=== PATIENT | male | born 1960 | race Caucasian/White ===

== ENCOUNTER → 2016-10-19 | Outpatient (CLI) | payer OTHER ==
[2016-10-19 16:53] LABS: Basophils # (A) 0.1 k/uL (0-0.2); Basophils % (A) 1 %; CH 34.2; CHCM 32.7; Eosinophils # (A) 0.5 k/uL (0-0.7); Eosinophils % (A) 4 %; HCT 53.3 % (39.0-53.0); HDW 2.41; HGB 17.2 gm/dL (13.0-17.5); Luc # (Auto) 0.34; Luc % (Auto) 2; Lymphocytes # (A) 3.9 k/uL (1.0-4.8); Lymphocytes % (A) 28 %; MCHC 32.4 g/dL (31.0-37.0); MCV 105.1 fL (80.0-100.0); Macrocytosis Moderate; Mean Platelet Volume 8.7; Monocytes % (A) 7 %; Neutrophils # (A) 8.1 k/uL (1.3-7.7); Neutrophils % (A) 58 %; RBC 5.07 m/uL (4.30-5.90); RDW 14.6 % (11.5-15.5); WBC 13.8 k/uL (3.8-10.6); WBC (Perox) 14.17
[2016-10-19 17:05] LABS: ALT 31 U/L (21-72); AST 26 U/L (17-59); Alkaline Phosphatase 87 U/L (38-126); Anion Gap 7 mmol/L; Blood Urea Nitrogen 17 mg/dL (9-20); Calcium 9.8 mg/dL (8.4-10.2); Carbon Dioxide 29 mmol/L (22-30); Chloride 104 mmol/L (98-107); Cholesterol 202 mg/dL (<200); Glucose 82 mg/dL (74-99); HDL Cholesterol 48 mg/dL (40-60); Non-African American GFR(MDRD) >60 (>60 ml/min/1.73 sqM); Potassium 4.2 mmol/L (3.5-5.1); Sodium 140 mmol/L (137-145); Total Bilirubin 0.6 mg/dL (0.2-1.3); Total Protein 7.2 g/dL (6.3-8.2); Triglycerides 100 mg/dL (<150)
[2016-10-19 17:21] LABS: Prolactin 16.2 ng/mL (3.7-17.9)
[2016-10-19 17:36] LABS: Prostate Specific Antigen 2.42 ng/mL (0.00-4.00)
== END | disposition home or self-care (01) ==
LOC: LABWHC1 16:30
PROVIDERS: ATTEND Family Medicine
DX: Z00.00 Encounter for general adult medical examination without abnormal findings (principal); Z12.5 Encounter for screening for malignant neoplasm of prostate; E29.1 Testicular hypofunction; D35.2 Benign neoplasm of pituitary gland
CPT/HCPCS: 36415; 80053; 80061; 82040; 84146; 84153; 84270; 84403; 85025

== ENCOUNTER → 2017-08-14 | Outpatient (CLI) | payer BC ==
--- NOTE | 2017-08-15 09:42 | MR ---
EXAMINATION TYPE: MR brain wo/w con DATE OF EXAM: 08/14/2017 COMPARISON: 06/17/[address] 09/12/2014 HISTORY: 57-year-old male benign neoplasm of cerebral meninges TECHNIQUE: Multiplanar, multisequence images of the brain and brainstem were acquired before and aft er administration of 7.5 mL IV Gadavist. Diffusion weighted imaging is performed. FINDINGS: As seen on CT of 09/12/2014, there is a mass along the lateral margin of the right cavernous sinus artemio ng the medial aspect of the right middle cranial fossa. This shows intermediate T2-weighted signal, s mooth contour, dural tail suggesting extra-axial location, abdomen and homogeneous postcontrast enhan cement measuring 2.7 cm AP by 1.8 cm and 2.1 cm craniocaudal. On prior 2014 CT, this is remeasured at 2.0 x 1.6 x 1.7 cm. On prior 2010 MRI, this was much smaller and is seen in retrospect and is measured at 1.5 x 1.0 x 1.2 cm. On the current exam, this causes mild regional mass effect onto the medial aspect of the right tempor al lobe. No midline shift. No extra-axial fluid collection or effacement of basal subarachnoid cisterns. Ventricles are age-appr opriate. Major intracranial flow voids are intact. T2/FLAIR weighted sequences show minimal scattered burden of right white matter change in the subcort ical and periventricular regions, approximately 5 on the right and 2 on the left. Midline structures demonstrate normal morphology. The craniocervical junction is normal. Post contrast images demonstrate no other evidence of pathologic enhancement. Dural venous sinuses a re patent. There is mild diffuse mucosal thickening throughout the paranasal sinuses. Globes are intact. IMPRESSION: 1. No acute intracranial abnormality seen. 2. Gradually enlarging extra-axial mass along the lateral margin of the right cavernous sinus within the medial aspect of the right middle cranial fossa. This currently measures 2.7 x 1.8 x 2.1 cm and h as mild regional mass effect onto the right temporal lobe. (On 09/12/2014, this measured 2.0 x 1.6 x 1 .7 cm) (on 06/17/2011, this measured 1.5 x 1.0 x 1.2 cm). 2. Given the T2 signal and enhancement characteristics as well as the extra-axial location, findings are most suggestive of a gradually enlarging meningioma. 3. Mild chronic pansinus disease.
== END | disposition home or self-care (01) ==
LOC: RADMRIMAIN 12:28
PROVIDERS: ATTEND Family Medicine
DX: G93.89 Other specified disorders of brain (principal); R93.0 Abnormal findings on diagnostic imaging of skull and head, not elsewhere classified; D32.0 Benign neoplasm of cerebral meninges
CPT/HCPCS: 70553; A9581

== ENCOUNTER 2018-06-28 08:56 | Emergency (ER) | payer BC, MEDICAID ==
[2018-06-28] MEDS ORDERED: SODIUM CHLORIDE 0.9% 1,000 ML IV STA (09:28)
[2018-06-28] MEDS ORDERED: METOCLOPRAMIDE 5 MG/ML 2 ML VIAL IVP STA (09:29)
[2018-06-28] MEDS ORDERED: DEXAMETHASONE SOD PHOSPHATE 10 MG/ML 1 ML VIAL IV STA (09:30)
--- NOTE | 2018-06-28 09:33 | ED ---
General Adult HPI - General Chief complaint: Neuro Symptoms/Deficit Stated complaint: head pain Source: patient Mode of arrival: ambulatory - History of Present Illness Initial comments: Dictation was produced using [employer] dictation software. please excuse any grammatical, word or spelling errors. Chief Complaint: 50-year-old male with past medical history of brain tumor status post resection presents with headache. History of Present Illness: The 50-year-old male with past medical history of hypertension, benign brain tumor presents with headache. Patient states that he had 2 resection of the brain proximally 1 year done at [place]. Patient states that over the past week he has been having increasing pain over the right side of his head. He states that he can feel the hardware in his brain. He states it hurts whenever he presses around that area. Patient has also been complaining of right-sided eye vision loss. Denies any constitutional symptoms. Patient states his pain is worse whenever he touches his surgical site. The ROS documented in this emergency department record has been reviewed and confirmed by me. Those systems with pertinent positive or negative responses have been documented in the HPI. All other systems are other negative and/or noncontributory. - Related Data Home Medications Medication Instructions Recorded Confirmed Ibuprofen [Motrin] 800 mg PO Q6HR PRN 09/12/14 06/28/18 Budesonide/Formoterol Fumarate 2 puff INHALATION RT-DAILY 06/28/18 06/28/18 [Symbicort 160-4.5 Mcg Inhaler] Calcium Carb/Magnesium Hydrox 1 tab PO Q3HR 06/28/18 06/28/18 [Rolaids Chewable Tablet] Previous Rx's Medication Instructions Recorded Hydrocodone/Acetaminophen [[place] 1 tab PO Q6HR PRN 3 Days #12 tab 06/28/18 5-325] Allergies Allergy/AdvReac Type Severity Reaction Status Date / Time Penicillins Allergy Rash/Hives Verified 06/28/18 10:13 hydromorphone HCl AdvReac Hallucinati Verified 06/28/18 10:13 [From Dilaudid] ons Review of Systems ROS Statement: Those systems with pertinent positive or pertinent negative responses have been documented in the HPI. ROS Other: All systems not noted in ROS Statement are negative. Past Medical History Past Medical History: Hypertension Additional Past Medical History / Comment(s): Benign brain tumor History of Any Multi-Drug Resistant Organisms: MRSA Date of last positivie culture/infection: 2012 MDRO Source:: foot Past Surgical History: No Surgical Hx Reported Additional Past Surgical History / Comment(s): Tumor removed from brain 2017 Smoking Status: Current every day smoker Past Alcohol Use History: None Reported Past Drug Use History: None Reported General Exam - General Exam Comments Initial Comments: PHYSICAL EXAM: General Impression: Alert and oriented x3, not in acute distress HEENT: Normocephalic atraumatic, extra-ocular movements intact, pupils equal and reactive to light bilaterally, mucous membranes moist. Cardiovascular: Heart regular rate and rhythm, S1&S2 audible, no murmurs, rubs or gallops Chest: Lungs clear to auscultation bilaterally, no rhonchi, no wheeze, no rales Abdomen: Bowel sounds present, abdomen soft, non-tender, non-distended, no organomegaly Musculoskeletal: Pulses present and equal in all extremities, no peripheral edema Motor: Power 5/5 bilaterally, no focal deficits noted Neurological: CN II-XII grossly intact, no focal motor or sensory deficits noted Skin: Intact with no visualized rashes Psych: Normal affect and mood Course Vital Signs 06/28/18 06/28/18 06/28/18 09:03 10:00 10:30 Temperature 98.0 F Pulse Rate 75 51 L 48 L Respiratory 18 20 20 Rate Blood Pressure 154/89 148/95 136/90 O2 Sat by Pulse 99 97 98 Oximetry 06/28/18 11:00 Temperature Pulse Rate 50 L Respiratory 17 Rate Blood Pressure 135/91 O2 Sat by Pulse 98 Oximetry Medical Decision Making - Medical Decision Making ED course: 58-year-old male presents with headache. He has history of tumor resection on the right side of his brain. Vital signs upon arrival are within acceptable limits. Basic labs were obtained showing no acute processes. Computed tomography scan does not show an acute processes. Patient given headache cocktail with improvement of symptoms. An attempt was made to contact patient's neurosurgeon. We were unable to establish contact with neurosurgeon. He was in the operating room allegedly. We contacted his clinic office. He has clinic on Monday. Patient is told to call the office on Monday to schedule an appointment. He is given some pain medications to go home with. Patient told to schedule an appointment for Monday. He is understandable and agreeable to this plan. He does have any neuro deficits that would warrant immediate transfer. - Lab Data Result diagrams: 06/28/18 09:33 06/28/18 09:33 Lab Results 06/28/18 06/28/18 06/28/18 Range/Units 09:33 09:33 09:33 WBC 10.8 H (3.8-10.6) k/uL RBC 4.91 (4.30-5.90) m/uL Hgb 16.1 (13.0-17.5) gm/dL Hct 50.6 (39.0-53.0) % MCV 103.1 H (80.0-100.0) fL MCH 32.7 (25.0-35.0) pg MCHC 31.7 (31.0-37.0) g/dL RDW 14.4 (11.5-15.5) % Plt Count 188 (150-450) k/uL Neutrophils % 69 % Lymphocytes % 20 % Monocytes % 7 % Eosinophils % 3 % Basophils % 1 % Neutrophils # 7.4 (1.3-7.7) k/uL Lymphocytes # 2.2 (1.0-4.8) k/uL Monocytes # 0.8 (0-1.0) k/uL Eosinophils # 0.3 (0-0.7) k/uL Basophils # 0.1 (0-0.2) k/uL Macrocytosis Slight PT 10.5 (9.0-12.0) sec INR 1.1 (<1.2) Sodium 141 (137-145) mmol/L Potassium 4.8 (3.5-5.1) mmol/L Chloride 112 H (98-107) mmol/L Carbon Dioxide 23 (22-30) mmol/L Anion Gap 6 mmol/L BUN 18 (9-20) mg/dL Creatinine 0.85 (0.66-1.25) mg/dL Est GFR (CKD-EPI)AfAm >90 (>60 ml/min/1.73 sqM) Est GFR (CKD-EPI)NonAf >90 (>60 ml/min/1.73 sqM) Glucose 88 (74-99) mg/dL Calcium 9.1 (8.4-10.2) mg/dL Disposition Clinical Impression: Headache Disposition: HOME SELF-CARE Condition: Good Instructions: Acute Headache (ED) Prescriptions: Hydrocodone/Acetaminophen [[place] 5-325] 1 tab PO Q6HR PRN 3 Days #12 tab PRN Reason: Pain Is patient prescribed a controlled substance at d/c from ED?: Yes Referrals: None,Stated [Primary Care Provider] - 1-2 days Brian Burton MD [STAFF PHYSICIAN] - 1-2 days Time of Disposition: 11:50
[2018-06-28 09:50] LABS: INR 1.1 (<1.2); Prothrombin Time 10.5 sec (9.0-12.0)
[2018-06-28 09:52] LABS: Basophils # (A) 0.1 k/uL (0-0.2); Basophils % (A) 1 %; Eosinophils # (A) 0.3 k/uL (0-0.7); Eosinophils % (A) 3 %; HCT 50.6 % (39.0-53.0); HGB 16.1 gm/dL (13.0-17.5); Lymphocytes # (A) 2.2 k/uL (1.0-4.8); Lymphocytes % (A) 20 %; MCH 32.7 pg (25.0-35.0); MCHC 31.7 g/dL (31.0-37.0); MCV 103.1 fL (80.0-100.0); Macrocytosis Slight; Mean Platelet Volume 7.4; Monocytes # (A) 0.8 k/uL (0-1.0); Monocytes % (A) 7 %; Neutrophils # (A) 7.4 k/uL (1.3-7.7); Neutrophils % (A) 69 %; Platelet Count 188 k/uL (150-450); RBC 4.91 m/uL (4.30-5.90); RDW 14.4 % (11.5-15.5); WBC 10.8 k/uL (3.8-10.6)
[2018-06-28 09:55] LABS: Anion Gap 6 mmol/L; Blood Urea Nitrogen 18 mg/dL (9-20); Calcium 9.1 mg/dL (8.4-10.2); Carbon Dioxide 23 mmol/L (22-30); Chloride 112 mmol/L (98-107); Glucose 88 mg/dL (74-99); Potassium 4.8 mmol/L (3.5-5.1); Sodium 141 mmol/L (137-145)
--- NOTE | 2018-06-28 10:02 | CT ---
EXAMINATION TYPE: CT brain wo con DATE OF EXAM: 06/28/2018 COMPARISON: 09/12/2014 CT brain HISTORY: Head pain, Brain surgery [address] DLP: 1062.4 mGycm. Automated Exposure Control for Dose Reduction was Utilized. TECHNIQUE: CT scan of the head is performed without contrast. FINDINGS: Craniectomy and craniotomy changes are seen within the right temporal, frontal, and parieta l bones. The previously seen right middle cranial fossa extra-axial mass abutting the cavernous sinus is now surgically absent. Encephalomalacia seen of the inferior anterior and medial right temporal l obe likely postsurgical. There is no acute intracranial hemorrhage, mass effect, or midline shift identified. The ventricles and sulci are within normal limits in size. Mild mucosal thickening is present within the maxillary s inuses. Surgical augmentation of the ostiomeatal complexes is noted. Remaining paranasal sinuses and mastoid air cells are well aerated. Globes are unremarkable. IMPRESSION: Postsurgical change of excision of a prior right extra-axial middle cranial fossa mass wi th subsequent encephalomalacia of the right temporal lobe. No acute intracranial process.
[2018-06-28 12:01] VITALS: BP 130/80; PULSE 53; RESP 16; TEMP 98.2
== END 2018-06-28 11:55 | disposition home or self-care (01) ==
LOC: EC 08:56
DX: R51 Headache (principal); Z86.011 Personal history of benign neoplasm of the brain; F17.200 Nicotine dependence, unspecified, uncomplicated; Z86.14 Personal history of Methicillin resistant Staphylococcus aureus infection; Z79.51 Long term (current) use of inhaled steroids; Z79.899 Other long term (current) drug therapy; Z88.0 Allergy status to penicillin; Z88.5 Allergy status to narcotic agent
CPT/HCPCS: 36415; 70450; 80048; 85025; 85610; 93005; 96361; 96374; 96375; 99284

== ENCOUNTER 2018-06-30 12:15 | Emergency (ER) | payer MEDICAID, OTHER ==
[2018-06-30 12:48] VITALS: RESP 18
[2018-06-30] MEDS ORDERED: HYDROcodone/APAP 5-325MG 1 EACH TAB PO STA (13:12)
[2018-06-30] MEDS ORDERED: PROPARACAINE 0.5% OPHTH DROPS 15 ML BTL RIGHT EYE STA (13:27)
[2018-06-30] MEDS: PROPARACAINE 0.5% OPHTH DROPS 15 ML BTL RIGHT EYE SCH (13:32)
--- NOTE | 2018-06-30 13:59 | ED ---
General Adult HPI - General Chief complaint: Eye Problems Stated complaint: Shingles Source: patient, RN notes reviewed, old records reviewed Mode of arrival: ambulatory Limitations: no limitations - History of Present Illness Initial comments: 50-year-old male patient with past history of benign neoplasm of the brain, presents to ED with one day history of rash above right eye, pain right eye. Patient was seen at urgent care prior to presentation, diagnosed with shingles. Patient states that she was initiated at urgent care, patient was instructed that he has not hear from them by 12 noon and they have not gotten in contact with the distillery worker general, and then recommended he present to ED to get in contact with Optho. Patient has never had shingles before. Patient does report that he had for several as a child. Patient reports pain right eye, watering right eye, discharge, states the visual acuity is at baseline when he blinks, however his eyes watery. Patient denies loss of vision, diplopia. Patient has no other complaints. Patient ambulatory. Patient has no facial droop, focal deficit. Patient denies chest pain, shortness breath, abdominal pain, nausea vomiting diarrhea. Systemic: Pt denies fatigue, myalgia. Pt denies weakness, night sweats, weight loss. Neuro: Pt denies headache, visual disturbances, syncope or pre-syncope. HEENT: Pt denies otalgia, rhinorrhea, pharyngitis or notable lymphadenopathy. Cardiopulmonary: Pt denies chest pain, SOB, heart palpitations, dyspnea on exertion. Abdominal/GI: Pt denies abdominal pain, n/v/d. : Pt denies dysuria, burning w/ urination, frequency/urgency. Denies new onset urinary or bowel incontinence. MSK: Pt denies myalgia, loss of strength or function in extremities. Neuro: Pt denies new onset weakness, facial droop, difficulty speaking, paresthesias. - Related Data Home Medications Medication Instructions Recorded Confirmed Ibuprofen [Motrin] 800 mg PO Q6HR PRN 09/12/14 06/28/18 Budesonide/Formoterol Fumarate 2 puff INHALATION RT-DAILY 06/28/18 06/28/18 [Symbicort 160-4.5 Mcg Inhaler] Calcium Carb/Magnesium Hydrox 1 tab PO Q3HR 06/28/18 06/28/18 [Rolaids Chewable Tablet] Previous Rx's Medication Instructions Recorded Hydrocodone/Acetaminophen [[place] 1 tab PO Q6HR PRN 3 Days #12 tab 06/28/18 5-325] Artificial Tears-Hypromellose 1 drops RIGHT EYE Q4HR 5 Days #1 06/30/18 [Artificial Tear Drops] bottle Allergies Allergy/AdvReac Type Severity Reaction Status Date / Time Penicillins Allergy Rash/Hives Verified 06/30/18 12:48 hydromorphone HCl AdvReac Hallucinati Verified 06/30/18 12:48 [From Dilaudid] ons Review of Systems ROS Statement: Those systems with pertinent positive or pertinent negative responses have been documented in the HPI. ROS Other: All systems not noted in ROS Statement are negative. Past Medical History Past Medical History: Hypertension Additional Past Medical History / Comment(s): Benign brain tumor History of Any Multi-Drug Resistant Organisms: MRSA Date of last positivie culture/infection: 2012 MDRO Source:: foot Past Surgical History: No Surgical Hx Reported Additional Past Surgical History / Comment(s): Tumor removed from brain 2017 Past Psychological History: Anxiety, Depression Smoking Status: Current every day smoker Past Alcohol Use History: None Reported Past Drug Use History: None Reported General Exam - General Exam Comments Initial Comments: Constitutional: NAD, AOX3, Pt has pleasant affect. HEENT: NC/AT, trachea midline, neck supple, no lymphadenopathy. Posterior pharynx non erythematous, without exudates. External ears appear normal, without discharge. Mucous membranes moist. Eyes PERRLA, EOM intact. Flourescence stain and slit lamp examination performed, no areas of uptake, no corneal abrasion, no dendritic lesions noted. Moderate injection noted to medial canthus. There is no scleral icterus. No pallor noted. Cardiopulmonary: RRR, no murmurs, rubs or gallops, no JVD noted. Lungs CTAB in anterior and posterior mendoza. No peripheral edema. Abdominal exam: Abdomen soft and non-distended. Abdomen non-tender to palpation in all 4 quadrants. Bowel sounds active in LLQ. No hepatosplenomegaly. Neuro: CN II-XII intact. No focal deficit, no lid droop, no facial droop. Patient is ambulatory without difficulty. Vision is full active range of motion in upper and lower extremity, full sensation. Derm: Mild, erythematous, macular papular rash noted on right V1 dermatome. No lesions directly involve the eye. Tender to light stroke. Limitations: no limitations Course Vital Signs 06/30/18 12:45 Temperature 98.2 F Pulse Rate 57 L Respiratory 18 Rate Blood Pressure 139/91 O2 Sat by Pulse 98 Oximetry Medical Decision Making - Medical Decision Making 58-year-old male patient diagnosed with first herpes zoster reactivation at urgent care by Dr. Otto earlier today. Patient has a maculopapular rash affecting V1. Patient has injection to medial canthus of right eye. Eyes PERRLA , EOM intact. Flourescence stain and slit lamp examination performed, no areas of uptake, no corneal abrasion, no dendritic lesions noted. Moderate injection noted to medial canthus. There is no scleral icterus. Patient very started on Valtrex, gabapentin by urgent care. Pt on valtrex 1g TID x 7 days. Pt visual acuity is 20/40 in affected eye, states that eyesight is nearly at baseline, just watery. Pt acuity is 20/30 in nonaffected eye, and 20/30 bilaterally. Contact made with Dr. Wagner in opthamology. Per guidance of Dr. Wagner pt to continue valtrex tx, be started on artificial tears, and will be seen in office tomorrow. Patient to return to ED if any new signs or symptoms develop including decreased visual acuity, worsening pain, lesions affecting, nausea vomiting diarrhea, changes in vision, any other new symptoms. Case discussed with Dr. Leroy. Disposition Clinical Impression: Herpes zoster Disposition: HOME SELF-CARE Prescriptions: Artificial Tears-Hypromellose [Artificial Tear Drops] 1 drops RIGHT EYE Q4HR 5 Days #1 bottle Is patient prescribed a controlled substance at d/c from ED?: No Referrals: Luke Jones MD [Primary Care Provider] - 1-2 days Jhoan Wagner MD [STAFF PHYSICIAN] - 1-2 days Time of Disposition: 14:46
[2018-06-30 15:23] VITALS: BP 154/85; PULSE 56; TEMP 97.7
== END 2018-06-30 15:17 | disposition home or self-care (01) ==
LOC: EC 12:15
DX: B02.9 Zoster without complications (principal); F17.200 Nicotine dependence, unspecified, uncomplicated; Z86.011 Personal history of benign neoplasm of the brain; Z86.14 Personal history of Methicillin resistant Staphylococcus aureus infection; Z79.51 Long term (current) use of inhaled steroids; Z88.0 Allergy status to penicillin; Z88.5 Allergy status to narcotic agent; Z53.20 Procedure and treatment not carried out because of patient's decision for unspecified reasons
CPT/HCPCS: 99283

== ENCOUNTER 2018-11-27 20:12 | Emergency (ER) | payer OTHER ==
[2018-11-27 20:17] VITALS: BP 150/86; PULSE 85; RESP 18; TEMP 97.8
[2018-11-27] MEDS ORDERED: LIDOCAINE 1% INJ 10MG/ML (20 ML MDV) SQ ONE (20:47)
--- NOTE | 2018-11-27 21:44 | ED ---
General Adult HPI - General Chief complaint: Skin/Abscess/Foreign Body Stated complaint: Lump in back Time Seen by Provider: 11/27/18 20:26 Source: patient, RN notes reviewed Mode of arrival: ambulatory - History of Present Illness Initial comments: 50-year-old male presents to the emergency department for a chief complaint of "lump on back." Patient states he noticed this tonight. States it is very tender. Patient states he may have noticed some streaking redness from the area but is unsure. Patient denies fevers or chills. Patient states his significant other wanted him to have it evaluated.Patient has no other complaints at this time including shortness of breath, chest pain, abdominal pain, nausea or vomiting, headache, or visual changes. - Related Data Home Medications Medication Instructions Recorded Confirmed Ibuprofen [Motrin] 800 mg PO Q6HR PRN 09/12/14 06/28/18 Budesonide/Formoterol Fumarate 2 puff INHALATION RT-DAILY 06/28/18 06/28/18 [Symbicort 160-4.5 Mcg Inhaler] Calcium Carb/Magnesium Hydrox 1 tab PO Q3HR 06/28/18 06/28/18 [Rolaids Chewable Tablet] Previous Rx's Medication Instructions Recorded Hydrocodone/Acetaminophen [[place] 1 tab PO Q6HR PRN 3 Days #12 tab 06/28/18 5-325] Artificial Tears-Hypromellose 1 drops RIGHT EYE Q4HR 5 Days #1 06/30/18 [Artificial Tear Drops] bottle Allergies Allergy/AdvReac Type Severity Reaction Status Date / Time Penicillins Allergy Rash/Hives Verified 11/27/18 20:17 hydromorphone HCl AdvReac Hallucinati Verified 11/27/18 20:17 [From Dilaudid] ons Review of Systems ROS Statement: Those systems with pertinent positive or pertinent negative responses have been documented in the HPI. ROS Other: All systems not noted in ROS Statement are negative. Past Medical History Past Medical History: Hypertension Additional Past Medical History / Comment(s): Benign brain tumor History of Any Multi-Drug Resistant Organisms: MRSA Date of last positivie culture/infection: 2012 MDRO Source:: foot Past Surgical History: No Surgical Hx Reported Additional Past Surgical History / Comment(s): Tumor removed from brain 2017 Past Psychological History: Anxiety, Depression Smoking Status: Current every day smoker Past Alcohol Use History: None Reported Past Drug Use History: None Reported General Exam General appearance: alert, in no apparent distress Head exam: Present: atraumatic, normocephalic, normal inspection Eye exam: Present: normal appearance, PERRL, EOMI. Absent: scleral icterus, conjunctival injection, periorbital swelling ENT exam: Present: normal exam, mucous membranes moist Neck exam: Present: normal inspection, full ROM. Absent: tenderness, meningismus, lymphadenopathy Respiratory exam: Present: normal lung sounds bilaterally. Absent: respiratory distress, wheezes, rales, rhonchi, stridor Cardiovascular Exam: Present: regular rate, normal rhythm, normal heart sounds. Absent: systolic murmur, diastolic murmur, rubs, gallop, clicks GI/Abdominal exam: Present: soft, normal bowel sounds. Absent: distended, tenderness, guarding, rebound, rigid Neurological exam: Present: alert, oriented X3, CN II-XII intact Psychiatric exam: Present: normal affect, normal mood Skin exam: Present: other (There is of 4 cm x 5 cm indurated area of the right mid dorsum below the scapula. This is tender however it is nonerythematous. Does not appear as an infection at this time.Patient has no other complaints at this time including shortness of breath, chest pain, abdominal pain, nausea or vomiting, headache, or visual changes.) Course Vital Signs 11/27/18 20:15 Temperature 97.8 F Pulse Rate 85 Respiratory 18 Rate Blood Pressure 150/86 O2 Sat by Pulse 98 Oximetry Medical Decision Making - Medical Decision Making 58-year-old male presents to the emergency department for a chief complaint of painful bump on his back. Patient states he noticed this today as tender but is not sure if it has been there for longer. Denies fevers or chills. Does think he noticed some streaking redness from the area however this is not evident at this time. On exam patient has a 4 cm x 5 cm nodule noted of the back. It is somewhat fluctuant however non-erythematous. Does not really appear like an abscess at this time. However given his history of possible streaking redness a did incise this with an 18-gauge needle. Serous fluid was expelled. This is likely a cyst however it does not appear infected. I believe patient should follow up outpatient with either dermatology or surgery for this. He should return here if he has any worsening symptoms. Disposition Clinical Impression: Cyst Disposition: HOME SELF-CARE Condition: Good Instructions (If sedation given, give patient instructions): Abscess (ED) Additional Instructions: Please follow up with general surgeon or dermatology in 1-2 days. However if you are having any worsening symptoms then return here to the emergency department. Is patient prescribed a controlled substance at d/c from ED?: No Referrals: Luke Jones MD [Primary Care Provider] - 1-2 days Marcia Hickman MD [STAFF PHYSICIAN] - 1-2 days Keith Walton MD [STAFF PHYSICIAN] - 1-2 days Time of Disposition: 21:38
== END 2018-11-27 22:08 | disposition home or self-care (01) ==
LOC: EC 20:12
DX: L72.9 Follicular cyst of the skin and subcutaneous tissue, unspecified (principal); F17.200 Nicotine dependence, unspecified, uncomplicated; Z86.14 Personal history of Methicillin resistant Staphylococcus aureus infection; Z79.51 Long term (current) use of inhaled steroids; Z88.0 Allergy status to penicillin; Z88.5 Allergy status to narcotic agent
CPT/HCPCS: 99283; 10060; J2001

== ENCOUNTER 2019-04-04 11:27 | Day surgery (SDC) | payer OTHER ==
[2019-03-29 14:31] VITALS: BMI 25.0
[~2019-04-04 11:27] MED LIST: LACTATED RINGERS 1,000 ML IV SCH; LIDOCAINE 1% 20 ML VIAL (10MG/ML) FOR IV START INTRADERMA PRN
[2019-04-04 11:58] VITALS: TEMP 98.4
[2019-04-04] MEDS ORDERED: LIDOCAINE 1% INJ 10MG/ML (20 ML MDV) ONE (12:32)
[2019-04-04] MEDS ORDERED: PROPOFOL 10 MG/ML 20 ML VIAL IV ONE (12:32)
--- NOTE | 2019-04-04 13:07 | P.PCN ---
Date of Procedure: 04/04/19 Description of Procedure: BRIEF HISTORY: Patient is a 58-year-old pleasant male scheduled for an elective colonoscopy as a part of screening for malignant neoplasm of colon. Denies any prior history of colonoscopy. Denies any change in bowel habits, blood per rectum, abdominal pain, constipation or diarrhea. He does report a history of colon cancer diagnosed in his mother in her 50s. PROCEDURE PERFORMED: Colonoscopy. PREOPERATIVE DIAGNOSIS: Screening for malignant neoplasm of the colon, no prior colonoscopies. ESTIMATED BLOOD LOSS: Minimal. IV sedation per Anesthesia. PROCEDURE: After informed consent was obtained, the patient, was brought into the endoscopy unit. IV sedation was administered by Anesthesia under continuous monitoring. Digital rectal examination was normal. Initially the Olympus CF-190 flexible video colonoscope was then inserted in the rectum, gradually advanced into the cecum without any difficulty. Careful examination was performed as the scope was gradually being withdrawn. Ileocecal valve and the appendiceal orifice were visualized and appeared normal. Prep was good, with some semisolid liquid stool adherent to the tan of the right colon which was lavaged. Mucosa of the cecum, ascending colon, transverse colon, descending colon, sigmoid colon, and rectum appeared normal. A few small mouth diverticula in the sigmoid colon noted. Retroflexion was performed in the rectum and no lesions were seen, mild internal hemorrhoids. The patient tolerated the procedure well. IMPRESSION: Normal-appearing colon from rectum to cecum. Mild sigmoid diverticulosis. RECOMMENDATIONS: Findings of this examination were discussed with the patient and his daughter. Okay to resume high-fiber diet. Okay to resume medications. Recommend repeat colonoscopy in 5 years given family history of colon cancer, or sooner if signs or symptoms which warrant further evaluation develop.
[2019-04-04 13:24] VITALS: BP 151/78; PULSE 57; RESP 18
== END 2019-04-04 13:57 | disposition home or self-care (01) ==
LOC: ORWHC2ENDO 11:27
PROVIDERS: ATTEND Internal Medicine
DX: Z12.11 Encounter for screening for malignant neoplasm of colon (principal); K57.30 Diverticulosis of large intestine without perforation or abscess without bleeding; K64.8 Other hemorrhoids; I10 Essential (primary) hypertension; F41.9 Anxiety disorder, unspecified; F32.9 Major depressive disorder, single episode, unspecified; F17.200 Nicotine dependence, unspecified, uncomplicated; Z88.0 Allergy status to penicillin; Z88.8 Allergy status to other drugs, medicaments and biological substances; Z79.890 Hormone replacement therapy; Z86.011 Personal history of benign neoplasm of the brain; Z98.890 Other specified postprocedural states; Z80.0 Family history of malignant neoplasm of digestive organs
CPT/HCPCS: J2001; J2704; G0105; 45378

== ENCOUNTER → 2019-04-29 | Outpatient (CLI) | payer OTHER ==
--- NOTE | 2019-04-29 22:45 | MR ---
EXAMINATION TYPE: MR brain wo/w con DATE OF EXAM: 04/29/2019 COMPARISON: MRI brain August 14, 2017. HISTORY: Benign neoplasm of cerebral meninges, prev tumor resection 2018 TECHNIQUE: Multiplanar, multisequence images of the brain and brainstem is performed without and with IV contras t, utilizing 7 mL intravenous Gadavist . FINDINGS: Diffusion weighted images demonstrate no evidence of a recent infarct or other diffusion ab normality. There is no worrisome extra-axial fluid collection. There is mild ventricular and sulcal prominence redemonstrated. There is occasional focus of T2 hyperintensity seen throughout the white m atter bilaterally. For reference there is stable 4 to 5 mm posterior right frontal lesion at level of hernández radiata axial image 20. Midline structures demonstrate normal morphology. The craniocervical junction appears within normal limits. Post contrast images demonstrate no abnormal enhancing mass on current study. Interval resec tion of right middle cranial fossa homogeneous enhancing lesion or meningioma medial temporal lobe le donaldo with some surgical clips left present axial image 10. Artifact from craniotomy not well visualize d on MRI. No new enhancing masses are identified. The dural venous sinuses appear patent. Mild to mod erate mucosal thickening involving the ethmoid sinuses bilaterally is redemonstrated. There is mild m ucosal thickening involving left maxillary sinus and bilateral frontal sinuses. Globes are intact ignacio aterally. 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 No residual enhanci ng mass identified. No new enhancing masses are seen.
== END ==
LOC: RADMRIMAIN 18:59
DX: D32.0 Benign neoplasm of cerebral meninges (principal); Z98.890 Other specified postprocedural states
CPT/HCPCS: 70553; A9585

== ENCOUNTER → 2019-05-20 | Outpatient (CLI) | payer OTHER ==
--- NOTE | 2019-05-20 11:38 | CTL ---
EXAMINATION TYPE: CT Low Dose Lung DATE OF EXAM ORDERED: 05/20/2019 HISTORY: Personal history tobacco use. Lung cancer screening CT DLP: [address] CTDI: 2.03 mGy Automated exposure control for dose reduction was used. SCREENING VISIT: Initial COMPARISON: None TECHNIQUE: Low dose computed tomography scan was performed through the chest at 1 mm thick sections a nd reconstructed images in the coronal plane at [address] DIAGNOSTIC QUALITY: Satisfactory FINDINGS: LUNG NODULES: None. LUNGS: COPD: Severity: Mild Fibrosis: Severity: 1 Lymph nodes: None Other findings: None RIGHT PLEURAL SPACE: Effusion: None Calcification: None Thickening: None Pneumothorax: None LEFT PLEURAL SPACE: Effusion: None Calcification: None Thickening: None Pneumothorax: None HEART: Heart Size: Normal Coronary calcification: None Pericardial effusion: None OTHER FINDINGS: Upper abdomen: Normal Bony thorax: Normal Supraclavicular region: Normal Other: Ascending thoracic aorta at the level the main pulmonary artery measures 3.0 cm. The main pul monary artery at the bifurcation measures 2.3 cm. IMPRESSION: Normal low-dose screening CT chest. FOLLOW UP CT CHEST RECOMMENDATION: Low-dose CT chest one year prior screening protocol CT LUNG RAD: 1
== END | disposition home or self-care (01) ==
LOC: RADCTMAIN 07:26
PROVIDERS: ATTEND Family Medicine
DX: Z12.2 Encounter for screening for malignant neoplasm of respiratory organs (principal); Z87.891 Personal history of nicotine dependence

== ENCOUNTER → 2019-09-30 | Outpatient (CLI) | payer OTHER ==
--- NOTE | 2019-09-30 15:12 | US ---
DATE OF EXAM: 09/30/2019 COMPARISON: NONE CLINICAL HISTORY: Supraclavicular lymphadenopathy R59.0. Patient states he has a palpable lump left n tylor that gets bigger and smaller TECHNIQUE/FINDINGS: Targeted grayscale and color imaging was performed of the patient's left neck at the site of palpable abnormality. At the area of the palpable in the left neck, there is a normal chloé earing lymph node measuring 0.5 cm. This has no cortical thickening and maintains a normal fatty hilu m. IMPRESSION: Nonenlarged subcentimeter lymph node corresponds to the patient's palpable abnormality.
== END | disposition home or self-care (01) ==
LOC: RADUSWWP 14:35
PROVIDERS: ATTEND Family Medicine
DX: R93.89 Abnormal findings on diagnostic imaging of other specified body structures (principal)
CPT/HCPCS: 76536